=== PATIENT | female | born 1975 | race Caucasian/White ===

== ENCOUNTER 2018-07-17 10:54 | Outpatient (REF) | payer SELFPAY ==
[2018-07-19 10:46] LABS: Measles IgG Antibody Negative; Mumps Antibody IgG Negative (Negative); Rubella IgG Ab (UVM) Positive
== END 2018-07-17 11:14 ==
LOC: NCHCN 10:54
PROVIDERS: PCP Family Medicine; Visit Provider Nurse Practitioner Family
DX: Z11.59 Encounter for screening for other viral diseases (principal); Z01.84 Encounter for antibody response examination
CPT/HCPCS: 86735; 86762; 86765

== ENCOUNTER 2020-09-02 16:13 | Outpatient (REF) | payer BC, SELFPAY ==
[2020-09-02 22:21] LABS: Calculated LDL 112 mg/dL (<100); Cholesterol 184 mg/dL (<200); Glucose 108 mg/dL (74-106); HDL Cholesterol 58 mg/dL (40-60); Triglyceride 72 mg/dL (<150)
== END 2020-09-02 16:14 | disposition home or self-care (01) ==
LOC: NCHCN 16:13
PROVIDERS: PCP Family Medicine; Visit Provider Nurse Practitioner Family
DX: Z00.00 Encounter for general adult medical examination without abnormal findings (principal); E66.01 Morbid (severe) obesity due to excess calories; Z13.1 Encounter for screening for diabetes mellitus; Z13.220 Encounter for screening for lipoid disorders
CPT/HCPCS: 80061; 82947